=== PATIENT | female | born 1995 ===

== ENCOUNTER 2017-01-25 10:17 | Emergency (ER) | payer MEDICAID ==
--- NOTE | 2017-01-25 18:31 | OBHP ---
Datetime: 01/25/2017 12:38 IP Adm Impression: , intrauterine ; No Active Labor IP Admit Plan: Observation/Evaluation Admit Comment, IP Provider: 21 YO @29.5 weeks presents with continuous pressure like pain to th e right inguinal region. She has had this problem for many years and had seen a doctor which told he r it was a hernia but nothing needed to be done. For the last 4 days she states the pain is getting w orse, and she sometimes has a swelling in the right inguinal region that is reducable. PMH: none PSH: none Allergies: None - Pain is aggrevated when she sits up and lays down. - No LOF, CTX, +FM A: 21 YO @ 29.5 weeks present for continuous right lower abdominal pain - monitorng - Transfer to ER downstairs for furthur evaluation Tressa Mejía PGY-1 obh addendum: pt seen _ examined by me with dr. diop. agree with assessment and plan. Pelvic Type - PN: Adequate Extremities - PN: Normal Abdomen - PN: Normal Lungs - PN: Normal Heart - PN: Normal General - PN: Normal FHR - Baseline A Provider: 140 Membranes, Provider: Intact Comments, ACOG Physical Exam: Right inguinal nodule noted 3.1cm x 1 cm. Not reducable EGA AdmitDate IP: 29.5 Vital Signs Provider: Reviewed; Within Normal Limits IP Chief Complaint: Maternal discomfort NICHD Variability Prov Fetus A: Moderate 6-25bpm NICHD Accel Fetus A IP Provider: 10X10 FHR Category Provider Fetus A: Category I NICHD Decel Fetus A IP Provider: None Dilatation, Provider: 0
== END 2017-01-25 11:45 | disposition home or self-care (01) ==
LOC: H.EROB2 10:17
DX: O26.93 Pregnancy related conditions, unspecified, third trimester (principal); R19.03 Right lower quadrant abdominal swelling, mass and lump; Z3A.29 29 weeks gestation of pregnancy

== ENCOUNTER 2017-01-25 12:30 | Emergency (ER) | payer MEDICAID ==
[2017-01-25 12:54] VITALS: BP 120/72; PULSE 98; RESP 18; TEMP 99; O2SAT 98
--- NOTE | 2017-01-25 13:03 | ED PDOC ---
HPI: Abdomen Time Seen by Provider: 01/25/17 12:37 Chief Complaint (Nursing): Abdominal Pain Chief Complaint (Provider): Abdominal pain History Per: Patient Additional Complaint(s): 21 yo female, , currently 29 weeks , presents to ED after being cleared from L&D for evaluation of abdominal pain . Pt reports that she has a mass that "pops in and out." No medications taken for pain thus far. Pt denies vaginal bleeding or spotting, no LOF, nausea or vomiting. Past Medical History Reviewed: Nursing Documentation, Vital Signs Vital Signs: Last Vital Signs Temp 99 F 01/25/17 12:53 Pulse 98 H 01/25/17 12:53 Resp 18 01/25/17 12:53 BP 120/72 01/25/17 12:53 Pulse Ox 98 01/25/17 13:03 - Medical History PMH: No Chronic Diseases - Surgical History Surgical History: No Surg Hx - Family History Family History: States: No Known Family Hx - Living Arrangements Living Arrangements: With Family - Social History Current smoker - smoking cessation education provided: No Alcohol: None Drugs: Denies - Immunization History Hx Tetanus Toxoid Vaccination: No Hx Influenza Vaccination: No Hx Pneumococcal Vaccination: No - Allergies Allergies/Adverse Reactions: Allergies Allergy/AdvReac Type Severity Reaction Status Date / Time No Known Allergies Allergy Verified 01/25/17 12:41 Review of Systems ROS Statement: Except As Marked, All Systems Reviewed And Found Negative Gastrointestinal: Positive for: Abdominal Pain Physical Exam - Reviewed Nursing Documentation Reviewed: Yes Vital Signs Reviewed: Yes - Physical Exam Appears: Positive for: Well, Non-toxic, No Acute Distress Head Exam: Positive for: ATRAUMATIC, NORMAL INSPECTION, NORMOCEPHALIC Skin: Positive for: Normal Color, Warm, DRY Eye Exam: Positive for: EOMI, Normal appearance, PERRL ENT: Positive for: Normal ENT Inspection Neck: Positive for: Normal, Painless ROM Cardiovascular/Chest: Positive for: Regular Rate, Rhythm Respiratory: Positive for: CNT, Normal Breath Sounds Gastrointestinal/Abdominal: Positive for: Normal Exam ((+) Gravid, (+) FM), Bowel Sounds, Soft. Negative for: Tenderness Back: Positive for: Normal Inspection Extremity: Positive for: Normal ROM Neurologic/Psych: Positive for: Alert, Oriented - ECG O2 Sat by Pulse Oximetry: 98 Medical Decision Making Medical Decision Making: Pt declined analgesics at this time US requested by Pt Impression: Single living fetus with a composite sonographic age of 30 weeks 2 days. Estimated heart rate 135 beats per min. Pt educated on all results and demonstrated full understanding. Stable for discharge at this time. Advised to follow up with OB, return to ED with any concerns Disposition - Clinical Impression Clinical Impression: Abdominal pain during , Hernia - Patient ED Disposition Is Patient to be Admitted: No - Disposition Disposition: Routine/Home Disposition Time: 15:42 Condition: STABLE Additional Instructions: Continue with Tylenol as needed for pain. Follow up with OB, return to ED with any concerns Instructions: Inguinal Hernia (ED) - POA Present On Arrival: None
--- NOTE | 2017-01-25 14:51 | US ---
OB , limited Comparison: Pelvic ultrasound performed 09/10/14 Technique: Real-time ultrasound was performed through the pelvis. Findings: There is a single living fetus in cephalic presentation. Amniotic fluid volume is within normal limits, measuring approximately 17.5 cm. Posterior placenta. The placenta is not previa. Bilateral ovaries are not visualized. There are no adnexal masses or cysts evident. Cervix length cannot be adequately established due to under distended urinary bladder. Limited images in the region of patient's pain within the right lower quadrant appear grossly unremarkable. Measurements and calculations: Fetus has a composite sonographic age of 30 weeks 2 days. This calculation is based on the biparietal diameter, head circumference, abdominal circumference, and femur length. Estimated heart rate 135 beats per min. Impression: Single living fetus with a composite sonographic age of 30 weeks 2 days. Estimated heart rate 135 beats per min.
== END 2017-01-25 15:50 | disposition home or self-care (01) ==
LOC: H.ER 12:30
DX: O26.893 Other specified pregnancy related conditions, third trimester (principal); Z3A.30 30 weeks gestation of pregnancy; K46.9 Unspecified abdominal hernia without obstruction or gangrene; R10.30 Lower abdominal pain, unspecified

== ENCOUNTER 2017-02-11 14:42 | Inpatient (IN) | payer MEDICAID ==
[2017-02-11] MEDS ORDERED: Lactated Ringer's 1,000 ML IV SCH (15:20)
[2017-02-11 15:32] VITALS: BMI 29.2
[2017-02-11] MEDS ORDERED: Ampicillin 2 GM in Sodium Chloride 0.9% 100 ML IV ONE (16:16)
[2017-02-11] MEDS ORDERED: Magnesium Sulfate 4 gm/100 ml 4 GM/100 ML BAG IV ONE (16:16)
[2017-02-11] MEDS ORDERED: Betamethasone Soluspan 30 mg/5mL Inj Susp IM SCH (16:30)
[2017-02-11] MEDS ORDERED: Magnesium Sulfate 2 gm/50 ml 2 GM/50 ML BAG IVPB ONE (17:36)
[2017-02-11] MEDS: Lactated Ringer's 1,000 ML IV SCH (17:55)
--- NOTE | 2017-02-11 18:32 | US ---
PROCEDURE: OB Pelvic Ultrasound HISTORY: labor, deceleration on FHT COMPARISON: None available. FINDINGS: UTERUS: Gestational sac: Single intrauterine gestation. Heart rate: 132 bpm. age (Ultrasound estimated): 32 weeks 1 day Xiomara-gestational hemorrhage: None. Date of delivery (Ultrasound estimated) : 04/07/2017 The fetus is seen at cephalic presentation. The placenta seen at the posterior wall. The amniotic fluid index is 17.7 centimeter. CERVIX: Long and closed. No cervical abnormality seen. The cervix measures 3.9 centimeter. RIGHT OVARY: Was not visualized. LEFT OVARY: Was not visualized. FREE FLUID: None. OTHER FINDINGS: None. IMPRESSION: Single intrauterine live seen at cephalic presentation at the time of this exam. Placenta seen at the posterior wall. The cervix is closed measures 3.9 centimeter. Amniotic fluid index 17.7 centimeter. The biophysical profile is 8 of 8.
[2017-02-11 18:38] LABS: RBC URINE 6 /hpf (0-3); URINE BACTERIA RARE (<OCC); URINE BILIRUBIN NEGATIVE (NEGATIVE); URINE BLOOD NEGATIVE (NEGATIVE); URINE COLOR AMBER (YELLOW); URINE GLUCOSE (UA) NEG (Normal); URINE KETONE TRACE mg/dL (NEGATIVE); URINE LEUKOCYTE ESTERASE NEG Leu/uL (Negative); URINE PROTEIN 30 mg/dL (NEGATIVE); URINE UROBILINOGEN 0.2-1.0 mg/dL (0.2-1.0); WBC URINE 4 /hpf (0-5)
[2017-02-11 18:55] LABS: BASO % 0.1 % (0.0-2.0); EOS % 0.5 % (0.0-4.0); HEMATOCRIT 38.7 % (34.0-47.0); LYMPH # 1.9 K/uL (1.0-4.3); LYMPH % 25.5 % (20.0-40.0); MEAN CELL VOLUME 90.4 fl (81.0-99.0); MEAN CORPUSCULAR HEMOGLOBIN 30.2 pg (27.0-31.0); MEAN CORPUSCULAR HGB CONC 33.3 g/dL (33.0-37.0); MONO # 0.6 K/uL (0.0-0.8); MONO % 7.7 % (0.0-10.0); NEUT % 66.2 % (50.0-75.0); NRBC % 0.1 % (0.0-0.0); RED CELL DISTRIBUTION WIDTH 13.1 % (11.5-14.5); WHITE BLOOD COUNT 7.5 K/uL (4.8-10.8)
[2017-02-11 19:09] LABS: ALB/GLOB RATIO 1.1 (1.0-2.1); ALKALINE PHOSPHATASE 78 U/L (38-126); ALT/SGPT 27 U/L (9-52); AST/SGOT 31 U/L (14-36); BILIRUBIN,TOTAL 0.2 mg/dl (0.2-1.3); BLOOD UREA NITROGEN 9 mg/dl (7-17); CALCIUM 9.2 mg/dL (8.4-10.2); CARBON DIOXIDE 19 mmol/L (22-30); CHLORIDE 106 mmol/L (98-107); GFR AFRICAN-AMERICAN > 60; GLUCOSE,RANDOM 71 mg/dL (65-105); POTASSIUM 3.9 MMOL/L (3.6-5.0); SODIUM 135 mmol/l (132-148); TOTAL PROTEIN 7.1 G/DL (6.3-8.2)
[2017-02-11] MEDS: AMPicillin 1 GM in Sodium Chloride 0.9% 100 ML IV SCH (21:10)
[2017-02-12] MEDS: AMPicillin 1 GM in Sodium Chloride 0.9% 100 ML IV SCH ×4 (01:30→10:04)
[2017-02-12] MEDS: Lactated Ringer's 1,000 ML IV SCH (02:01)
[2017-02-12] MEDS ORDERED: Magnesium Sul 40GM/1L SW 40 GM/1,000 ML ML IV ONE (07:00)
[2017-02-12] MEDS ORDERED: Lactated Ringer's 1,000 ML IV SCH (07:00)
--- NOTE | 2017-02-12 11:09 | OBADHP ---
Datetime: 02/11/2017 16:08 Admit Comment, IP Provider: 21 YO @32.1 weeks presents to the [facility] after having increased cram py pressure like pain in the lower abdomen b/l. She initially thought it was her h/o inguinal hernia which was causing the pain, but once she noticed the pain was worsening to a 9/10 in intensity she d ecided to come to the ED. - Denies LOF, CTX, N,V +FM PMH: Rt inguinal hernia PSH: none Allergies: None GBS: + Blood tpe A+ HBsAg: neg HIV: neg GC/C: neg A: 21 YO @ 32.1 weeks present to the [facility] w/ b/ crampy sensation, and is found to be 1-2 cm dilated irregular ctx's. Admit for labor P: - Admit patient to the unit - Start Magnesium, Cellestone, Ampicillin - Continue to monitor resp rate and DTR Tressa Mejía PGY-1 Addendum: I saw and examined patient up presentation. 21-year-old at 32 weeks gestational age presented to the ED complaining of contractions and pressure. At presentation, heart tracing showed approximately 5-6 cm deceleration. Deceleration spontaneously ceased and heart tracing returned to baseline of 120s to 130s. Good baseline jonathan iability before and after deceleration with good accelerations. On exam, patient found to be 1-2 cm d ilated. BPP done which reported 8 out of 8. Patient with occasional contractions seen on tocometer. I discussed plan with patient. I recommended patient admission for observation and treatment of pr esumed labor. I discussed plan with patient and all patient questions answered. Patient admit zenaida for tocolysis with magnesium sulfate, steroid course for lung maturity, and IV antibiotics for GBS prophylaxis in case of active labor. Maternal well-being and well-being were reassuring and remained reassuring while in OB ED. I discussed with patient and information regarding l abor and the reason for admission. All patient questions were answered. Pelvic Type - PN: Adequate Extremities - PN: Normal Abdomen - PN: Normal Back - PN: Normal Breast - PN: Normal Lungs - PN: Normal Heart - PN: Normal Thyroid - PN: Normal Neurologic - PN: Normal HEENT - PN: Normal General - PN: Normal FHR - Baseline A Provider: 140s Membranes, Provider: Intact Contraction Comments Provider: occasional Comments, ACOG Physical Exam: Resp: CTAB, no W/R/R , RR:12 DTR: WNL B/L Pool Provider: Negative IP Hx Assessment: The History has been Updated Vital Signs Provider: Reviewed; Within Normal Limits IP Chief Complaint: Uterine contractions; Suspected ruptured membranes NICHD Variability Prov Fetus A: Moderate 6-25bpm NICHD Accel Fetus A IP Provider: 15X15 Dilatation, Provider: 1-2 Effacement, Provider: 50 Station, Provider: -3 Genitourinary Exam: Normal DTRs - PN: Normal EGA AdmitDate IP: 32.1 IP Adm Impression: , intrauterine ; No Active Labor; Intact Membranes IP Admit Plan: Admit to unit; Initiate labor protocol Datetime: 01/25/2017 12:38 FHR Category Provider Fetus A: Category I NICHD Decel Fetus A IP Provider: None
[2017-02-12] MEDS ORDERED: Betamethasone Soluspan 30 mg/5mL Inj Susp IM SCH (11:30)
--- NOTE | 2017-02-12 11:40 | OBPN ---
Datetime: 02/12/2017 11:22 IP Progress Impression: labor IP Procedures: Sterile Vag Exam IP Progress Plan: Discharge Membranes, Provider: Intact Contraction Comments Provider: occasional FHR - Baseline A Provider: 120 IP Progress Note Comment: 21 yo G1 at 32+2 wks feeling better, denies pain, ctxns, VB, LOF and repor ts FM. BPP yesterday 04/27, cervix closed and long, 3.9 cm. Pt to receive second dose of Betamthasone now Discharge home Pt to follow up in clinic next Wed., 02/19/2017 NICHD Accel Fetus A IP Provider: 15X15 FHR Category Provider Fetus A: Category I NICHD Variability Prov Fetus A: Moderate 6-25bpm Dilatation, Provider: 0 Effacement, Provider: 0 Station, Provider: -3 NICHD Decel Fetus A IP Provider: None Datetime: 02/11/2017 16:08 Pool Provider: Negative Vital Signs Provider: Reviewed; Within Normal Limits
--- NOTE | 2017-02-12 13:03 | OBDCSUM ---
Datetime: 02/12/2017 13:01 Discharged to, Provider: Home Follow up at, Provider: Clinic Disch Instr Activity: Normal activity Disch Instr Diet: Regular Discharge Instructions, Provider: Routine instructions given Discharge Diagnosis, Provider: Labor Discharge Time: 02/12/2017 13:01 Follow up in weeks, Provider: 1 week Contraception discussed, Prov: No
== END 2017-02-12 13:01 | disposition home or self-care (01) | DRG 379 ==
LOC: H.EROB2 14:42 → H.L&D 17:00
PROVIDERS: ADMIT Obstetrics & Gynecology; ATTEND Obstetrics & Gynecology
PROC: 4A1HXCZ Monitoring of Products of Conception, Cardiac Rate, External Approach (ICD-10-PCS; principal; 2017-02-11)
DX: O60.03 Preterm labor without delivery, third trimester (principal); Z3A.32 32 weeks gestation of pregnancy

== ENCOUNTER 2018-01-16 14:23 | Emergency (ER) | payer MEDICAID, OTHER ==
[2018-01-16 14:23] VITALS: BMI 29.2
[2018-01-16 14:30] VITALS: BP 131/87; RESP 18; TEMP 97.9; O2SAT 99
[2018-01-16] MEDS ORDERED: Naproxen 500 MG TAB PO STA (15:23)
--- NOTE | 2018-01-16 15:35 | ED PDOC ---
HPI: Back Time Seen by Provider: 01/16/18 14:36 Chief Complaint (Nursing): Back Pain Chief Complaint (Provider): Back Pain History Per: Patient History/Exam Limitations: no limitations Onset/Duration Of Symptoms: Hrs, Sudden Onset Current Symptoms Are (Timing): Still Present Exacerbating Factor(s): Movement Additional Complaint(s): Shauna Seaman is a 22 year old female with no significant past medical history, who is presenting to the ER with complaints of sudden onset lower back pain worsened with movement, onset a few hours prior to arrival. Patient states that she was giving her nine month old child a bath and was bent over, once she straightened her back she began to feel pain. She also reports that she works at [employer] where she does heavy lifting along with lifting her child regularly. Patient denies any fever, nausea, vomiting, abdominal pain, trauma, injury, fever, numbness, weakness, bowel or bladder incontinence or urinary symptoms. PMD: Wilder Puri Past Medical History Reviewed: Historical Data, Nursing Documentation, Vital Signs Vital Signs: Last Vital Signs Temp 97.9 F 01/16/18 14:29 Pulse 99 H 01/16/18 14:29 Resp 18 01/16/18 14:29 BP 131/87 01/16/18 14:29 Pulse Ox 99 01/16/18 14:29 - Medical History PMH: No Chronic Diseases - Family History Family History: States: Unknown Family Hx - Immunization History Hx Tetanus Toxoid Vaccination: No Hx Influenza Vaccination: No Hx Pneumococcal Vaccination: No - Home Medications Home Medications: Ambulatory Orders Medication Instructions Recorded Vit No.126/Iron/Folic 1 tab PO DAILY MDD 1 tab 02/11/17 [Prenavite] Cyclobenzaprine [Cyclobenzaprine 10 mg PO TID PRN #15 tab 01/16/18 HCl] Naproxen 500 mg PO BID PRN #30 tablet 01/16/18 - Allergies Allergies/Adverse Reactions: Allergies Allergy/AdvReac Type Severity Reaction Status Date / Time No Known Allergies Allergy Verified 01/16/18 14:28 Review of Systems ROS Statement: Except As Marked, All Systems Reviewed And Found Negative Constitutional: Negative for: Fever, Other (trauma, injury) Gastrointestinal: Negative for: Other (urinary symptoms) Musculoskeletal: Positive for: Back Pain Physical Exam - Reviewed Nursing Documentation Reviewed: Yes Vital Signs Reviewed: Yes - Physical Exam Comments: GENERAL APPEARANCE: Patient is awake, alert, oriented x 3, in mild distress. Patient ambulatory to the emergency room with a steady gait. SKIN: Warm, dry; (-) cyanosis. EYES: (-) conjunctival pallor. ENMT: Mucous membranes moist. NECK: (-) tenderness, (-) stiffness, (-) lymphadenopathy. CHEST AND RESPIRATORY: (-) rales, (-) rhonchi, (-) wheezes; breath sounds equal bilaterally. HEART AND CARDIOVASCULAR: (-) irregularity; (-) murmur, (-) gallop. ABDOMEN AND GI: Soft; (-) tenderness; (-) palpable mass. BACK: (+) paralumbar tenderness, (-) direct bony tenderness, (-) deformity. EXTREMITIES: (-) deformity. Distal pulses good bilaterally. NEURO AND PSYCH: Mental status as above. Intact sensation bilaterally; normal strength in extension of the knees, plantar and dorsiflexion of the toes. - ECG O2 Sat by Pulse Oximetry: 99 (RA) Pulse Ox Interpretation: Normal Medical Decision Making Medical Decision Making: Time: 15:23 Plan: --Flexeril 10 mg PO --Naproxen 500 mg PO Advised to follow up with primary care physician in 1-2 days without fail. Advised to take medication as prescribed. Return to the emergency room at any time for any new or worsening symptoms. Patient states she fully agrees with and understands discharge instructions. States that she agrees with the plan and disposition. Verbalized and repeated discharge instructions and plan. I have given the patient opportunity to ask any additional questions. Scribe Attestation: Documented by Sharlene Galaviz, acting as a scribe for Rose Marie Burnett PA-C. Provider Scribe Attestation: All medical record entries made by the Gutierrez were at my direction and personally dictated by me. I have reviewed the chart and agree that the record accurately reflects my personal performance of the history, physical exam, medical decision making, and the department course for this patient. I have also personally directed, reviewed, and agree with the discharge instructions and disposition. Disposition - Clinical Impression Clinical Impression: Low back pain - Patient ED Disposition Is Patient to be Admitted: No Counseled Patient/Family Regarding: Diagnosis, Need For Followup, Rx Given - Disposition Disposition: Routine/Home Disposition Time: 15:30 Condition: STABLE Additional Instructions: Thank you for letting us take care of you today. You were treated for low back pain. The emergency medical care you received today was directed at your acute symptoms. If you were prescribed any medication, please fill it and take as directed. It may take several days for your symptoms to resolve. Return to the Emergency Department if your symptoms worsen, do not improve, or if you have any other problems. Please contact your doctor in 2 days for re-evaluation and follow up. Bring any paperwork you were given at discharge with you along with any medications you are taking to your follow up visit. Our treatment cannot replace ongoing medical care by a primary care provider (PCP) outside of the emergency department. Thank you for allowing the [facility] team to be part of your care today. Prescriptions: Cyclobenzaprine [Cyclobenzaprine HCl] 10 mg PO TID PRN #15 tab PRN Reason: Muscle Spasm Naproxen 500 mg PO BID PRN #30 tablet PRN Reason: Pain, Moderate (4-7) Instructions: Low Back Pain in Adults Forms: What They Like (Macedonian), [facility] ED School/Work Excuse
[2018-01-16] MEDS ORDERED: Naproxen 500 MG TAB PO ONE (15:39)
[2018-01-16 16:10] VITALS: PULSE 84
== END 2018-01-16 16:10 | disposition home or self-care (01) ==
LOC: H.ER 14:23
DX: M54.5 Low back pain (principal)